=== PATIENT | female | born 1985 | race Caucasian/White ===

== ENCOUNTER → 2025-03-20 14:51 | Outpatient (CLI) | payer OTHER, SELFPAY ==
--- NOTE | 2025-03-20 14:52 | DI.ECHO.S_ITS ---
[facility] : : [address] : : [place] : : [id number] : : Phone: [phone] Echocardiogram Report + + :Name: CHRISTEN HERNANDEZ Study Date: 03/20/2025 Height: 68 in : :[facility] ReadingLocation: Weight: 140 lb : : Gender: Female BSA: 1.8 m2 : :: 1985 Age: 40 yrs BP: 131/86 mmHg: :Reason For Study: MVP : :Ordering Physician: LYNN, : :ALLA Performed By: Dillon Ballard : :Referring: ALLA BAILEY : + + Interpretation Summary The left ventricle is normal in size. The left ventricular ejection fraction is normal. The ejection fraction is estimated to be 60-65%. Diastolic parameters suggest probable normal left ventricular diastolic function and normal filling pressures. The right ventricle is normal in size and function. Bilateral mitral leaflet prolapse. There is mild mitral valve prolapse. There is trace mitral regurgitation. The IVC is of normal diameter and collapses greater than 50% with a sniff. This suggests a low right atrial pressure of 3 mm Hg. Procedure: A two-dimensional transthoracic echocardiogram with color flow and Doppler was performed. The study quality was technically good. There is no prior echocardiogram noted for this patient. The patient was in normal sinus rhythm during the exam. Left Ventricle: The left ventricle is normal in size. There is normal left ventricular wall thickness. There is no thrombus. The ejection fraction is estimated to be 60-65%. The left ventricular ejection fraction is normal. There are no focal wall motion abnormalities. Diastolic parameters suggest probable normal left ventricular diastolic function and normal filling pressures. Right Ventricle: The right ventricle is normal in size and function. Atria: The left atrial size is normal. Right atrial size is normal. There is no Doppler evidence for an interatrial shunt. Mitral Valve: There is mild mitral valve prolapse. Bilateral mitral leaflet prolapse. There is trace mitral regurgitation. Aortic Valve: The aortic valve is trileaflet. The aortic valve opens well. There is no aortic valve stenosis. No aortic regurgitation is present. Tricuspid Valve: The tricuspid valve leaflets are thin and pliable. There is trace tricuspid regurgitation. The right ventricular systolic pressure is estimated to be at least 27 mmHg based on an estimated right atrial pressure of 3 mm Hg. Pulmonic Valve: The pulmonic valve leaflets are thin and pliable; valve motion is normal. There is no pulmonic valvular regurgitation. Great Vessels: The aortic root is normal size. The dimensions of the ascending aorta are normal. The pulmonary artery is normal size. The IVC is of normal diameter and collapses greater than 50% with a sniff. This suggests a low right atrial pressure of 3 mm Hg. Pericardium/ Pleura There is no pericardial effusion. There is no pleural effusion. MMode/2D Measurements & Calculations LVIDd: 4.9 cm LVOT diam: 2.4 cm LVIDs: 3.0 cm Ao root diam: 3.6 cm FS: 40.1 % asc Aorta Diam: 3.2 cm EPSS: 1.0 cm Ao Arch Diam (Prox Trans): 1.2 cm IVSd: 0.77 cm LVPWd: 0.78 cm LV lal. diameter/BSA (cm/m^2): 2.8 LV sys. diameter/BSA (cm/m^2): 1.7 LA A2 area: 17.8 cm2 RA long axis: 4.6 cm LA A4 area: 19.9 cm2 RA area: 15.9 cm2 LA length (vol): 5.7 cm RA vol: 46.9 ml LA vol: 52.8 ml RA : 26.7 ml/m2 LA vol index: 30.1 ml/m2 IVC diam: 1.8 cm RVD1 (basal): 3.6 cm RVD2 (mid): 2.8 cm TAPSE: 2.9 cm Doppler Measurements & Calculations Ao V2 max: 116.5 cm/sec LVOT Max Ronnie: 89.1 cm/sec Ao V2 mean: 83.4 cm/sec LV V1 max P.2 mmHg Ao max P.4 mmHg LV V1 VTI: 20.9 cm Ao mean P.0 mmHg MARGARITA(I,D): 3.9 cm2 Ao V2 VTI: 24.8 cm MARGARITA(V,D): 3.5 cm2 sev ratio: 0.84 MARGARITA indexed to BSA (cm^2/m^2): 2.2 MV E max ronnie: 75.7 cm/sec TR max ronnie: 244.2 cm/sec MV A max ronnie: 40.4 cm/sec TR max P.9 mmHg MV E/A: 1.9 PA V2 max: 76.5 cm/sec Med Peak E' Ronnie: 12.4 cm/sec PA V2 mean: 57.0 cm/sec E/E' med: 6.1 PA mean P.4 mmHg Lat Peak E' Ronnie: 15.4 cm/sec PA pr(Accel): 27.6 mmHg E/E' lat: 4.9 E/e' average: 5.5 MV dec time: 0.14 sec SV(LVOT): 96.0 ml Reading Physician:12:34 PM
== END ==
PROVIDERS: PCP Family Medicine; Referring Provider Family Medicine; Visit Provider Family Medicine
DX: I34.0 Nonrheumatic mitral (valve) insufficiency (principal); I34.1 Nonrheumatic mitral (valve) prolapse
CPT/HCPCS: 93306

== ENCOUNTER → 2025-04-02 08:03 | Outpatient (CLI) | payer OTHER, SELFPAY ==
[2025-04-02 08:57] LABS: Add Manual Diff / Slide Review NO; Basophils Absolute Auto 0 /uL (0-100); Basophils Percent Auto 0.8 % (0-2); Eosinophils Absolute Auto 100 /uL (0-450); Eosinophils Percent Auto 1.2 % (2-4); Hemoglobin 14.3 g/dL (12.0-16.0); Lymphocytes Absolute Auto 1600 /uL (1100-4500); Lymphocytes Percent Auto 30.6 % (25-40); Mean Corpuscular Hemoglobin 31.7 PG (26-34); Mean Corpuscular Volume 93.3 fL (80-100); Monocytes Absolute Auto 500 /uL (0-900); Monocytes Percent Auto 8.6 % (3-14); Neutrophils Absolute Auto 3100 /uL (1500-7000); Neutrophils Percent Auto 58.8 % (50-75); Platelet Count 148 X10^3/uL (150-400); Red Cell Distribution Width 12.4 % (11.6-14.8); White Blood Cell Count 5.3 X10^3/uL (4.5-11.0)
[2025-04-02 09:17] LABS: Alanine Aminotransferase 19 IU/L (<35); Albumin 4.7 g/dL (3.5-5.0); Albumin Globulin Ratio 1.7 (1.0-2.8); Alkaline Phosphatase 36 U/L (38-126); Aspartate Aminotransferase 25 IU/L (14-36); BUN Creatinine Ratio 15.9 (6-22); Bilirubin Total 0.7 mg/dL (0.2-1.3); Blood Urea Nitrogen 13 mg/dL (7-17); Calcium 9.3 mg/dL (8.4-10.2); Carbon Dioxide 26 mmol/L (22-32); Chloride 103 mmol/L (98-107); Cholesterol 247 mg/dL (140-199); Estimated Glomerular Filt Rate > 60 mL/min (>60); Globulin 2.7 g/dL (1.7-4.1); Glucose 91 mg/dL (70-99); HDL Cholesterol 78 mg/dL (40-60); HEMOLYSIS < 15 (0-50); LDL Cholesterol Calculated 152 mg/dL (<100); Potassium 3.9 mmol/L (3.4-5.1); Sodium 136 mmol/L (137-145); Total Protein 7.4 g/dL (6.3-8.2); Triglycerides 86 mg/dL (35-150)
[2025-04-02 09:24] LABS: Hemoglobin A1C% w Est Avg Glu 4.8 % (4.0-6.0)
== END ==
LOC: LAB 08:03
PROVIDERS: PCP Family Medicine; Referring Provider Family Medicine; Visit Provider Family Medicine
DX: Z13.220 Encounter for screening for lipoid disorders (principal); Z83.438 Family history of other disorder of lipoprotein metabolism and other lipidemia
CPT/HCPCS: 36415; 80053; 80061; 83036; 85025